=== PATIENT | male | born 1950 | race Caucasian/White ===

== ENCOUNTER → 2017-09-03 | Outpatient (CLI) | payer OTHER ==
[~2017-09-03] MED LIST: AMLO10 PO; CHLO25B PO; Crestor20 MG; DOXY100T53 PO; IRBHYD300 PO; LEVSOD100 PO; METO100ER PO; NASACORT10.8 ML NS; Omeprazole20 M1 PO; POTCHL10ER PO; TENEX1 MG PO
[2017-09-03 14:30] LABS: Protein, Urine Random 18.8 mg/dL (0.0-11.9)
== END | disposition home or self-care (01) ==
LOC: OLS 11:51 → LAB SHORT 11:51
PROVIDERS: Internal Medicine
DX: I12.9 Hypertensive chronic kidney disease with stage 1 through stage 4 chronic kidney disease, or unspecified chronic kidney disease (principal); N18.2 Chronic kidney disease, stage 2 (mild)
CPT/HCPCS: 82570; 84156

== ENCOUNTER → 2019-10-11 | Outpatient (CLI) | payer OTHER | END | disposition home or self-care (01) | LOC: PLD 08:18 → LAB SHORT 08:18 | DX: C44.612 Basal cell carcinoma of skin of right upper limb, including shoulder (principal) | CPT/HCPCS: 88305 ==

== ENCOUNTER → 2019-10-20 | Outpatient (CLI) | payer OTHER | END | disposition home or self-care (01) | LOC: PLD 08:25 → LAB SHORT 08:25 | DX: D04.61 Carcinoma in situ of skin of right upper limb, including shoulder (principal) | CPT/HCPCS: 88305 ==

== ENCOUNTER → 2021-07-17 | Outpatient (CLI) | payer OTHER | END | disposition home or self-care (01) | LOC: PLD 11:02 → LAB SHORT 11:02 | DX: L82.1 Other seborrheic keratosis (principal) | CPT/HCPCS: 88305 ==

== ENCOUNTER 2021-10-18 11:29 | Day surgery (SDC) | payer OTHER ==
[~2021-10-18] VITALS: Ht 175.3 cm; Wt 110.2 kg
== END 2021-10-18 14:37 | disposition home or self-care (01) ==
LOC: ORSCSDS 11:29
PROVIDERS: Student in an Organized Health Care Education/Training Program
PROC: 0DBL8ZX Excision of Transverse Colon, Via Natural or Artificial Opening Endoscopic, Diagnostic (ICD-10-PCS; principal; 2021-10-18 12:45)
PROC: 0DBK8ZX Excision of Ascending Colon, Via Natural or Artificial Opening Endoscopic, Diagnostic (ICD-10-PCS; principal; 2021-10-18 12:45)
DX: Z12.11 Encounter for screening for malignant neoplasm of colon (principal); Z86.010 Personal history of colon polyps; D12.2 Benign neoplasm of ascending colon; D12.3 Benign neoplasm of transverse colon; I10 Essential (primary) hypertension; I25.10 Atherosclerotic heart disease of native coronary artery without angina pectoris; G47.33 Obstructive sleep apnea (adult) (pediatric); K21.9 Gastro-esophageal reflux disease without esophagitis; E03.9 Hypothyroidism, unspecified; E66.9 Obesity, unspecified; Z68.35 Body mass index [BMI] 35.0-35.9, adult; Z79.899 Other long term (current) drug therapy; Z85.46 Personal history of malignant neoplasm of prostate
CPT/HCPCS: 82947; 88305; J2704; J7120

== ENCOUNTER 2024-05-18 09:41 | Emergency (ER) | payer OTHER ==
[~2024-05-18] VITALS: Ht 172.7 cm; Wt 111.1 kg
[2024-05-18 09:58] VITALS: BP 144/97
[2024-05-18] MEDS ORDERED: Ketorolac Tromethamine 30mg Vial IM ONE (10:30)
[2024-05-18] MEDS ORDERED: METHOCARBAMOL1000 MG PO (10:35)
== END 2024-05-18 12:00 | disposition home or self-care (01) ==
LOC: ER 09:41
DX: M54.50 Low back pain, unspecified (principal); G89.29 Other chronic pain; Z79.890 Hormone replacement therapy; Z79.899 Other long term (current) drug therapy
CPT/HCPCS: 96372; 99283-25; J1885